=== PATIENT | female | born 1960 | race Caucasian/White ===

== ENCOUNTER 2017-11-05 14:28 | Emergency (ER) | payer BC ==
[2017-11-05] MEDS ORDERED: ONDANSETRON HCL IV 4 MG/2 ML VIAL IV ONE (14:49)
[2017-11-05] MEDS ORDERED: 0.9 % SODIUM CHLORIDE 1,000 ML BAG IV ONE (14:49)
--- NOTE | 2017-11-05 14:51 | Emergency Department Record ---
History of Present Illness - General Chief Complaint: Abdominal Pain Stated Complaint: ABD PAIN Time Seen by Provider: 11/05/17 14:41 Source: Patient Mode of Arrival: Ambulatory Limitations: No limitations - History of Present Illness Initial Comments: The patient is here due to a one day hx of sharp stabbing RUQ AP with intermittent radiation to the R flank. She has had nausea but no vomiting. Now today the patient is having watery stools also. There is no reported fever, chills, dysuria, blood in the stool, Cp or SOB. The patient has had her GB removed and also a hysterectomy. Her last colonscopy was last year and normal. MD Complaint: Abdominal pain Onset/Timin -: Days(s) Location: Epigastric, RUQ - Related Data Hx Age of Menopause: 46 Home Medications Medication Instructions Recorded Confirmed Last Taken Canagliflozin [Invokana] 300 mg PO ASDIR 11/05/17 11/05/17 11/04/17 Dulaglutide [Trulicity] 1.5 mg INJ ASDIR 11/05/17 11/05/17 11/04/17 Insulin Degludec [Tresiba 200 mg PO ASDIR 11/05/17 11/05/17 11/04/17 Flextouch U-200] Previous Rx's Medication Instructions Recorded Dicyclomine HCl [Bentyl] 10 mg PO Q8H #15 cap 11/05/17 Omeprazole 20 mg PO DAILY #28 cap. 11/05/17 Allergies Allergy/AdvReac Type Severity Reaction Status Date / Time prochlorperazine edisylate Allergy Severe ANAPHYLAXIS Verified 11/05/17 14:43 [From Compazine] prochlorperazine maleate Allergy Severe ANAPHYLAXIS Verified 11/05/17 14:43 [From Compazine] Review of Systems Constitutional: Denies: Chills, Fever Eyes: Denies: Eye discharge ENT: Denies: Congestion Respiratory: Denies: Cough, Dyspnea Cardiovascular: Denies: Arrhythmia, Chest pain Endocrine: Denies: Fatigue Gastrointestinal: Reports: Abdominal pain, Nausea Genitourinary: Denies: Dysuria Musculoskeletal: Denies: Arthralgia Past Medical History - SOCIAL HISTORY Smoking Status: Current every day smoker - RESPIRATORY Hx Respiratory Disorders: Yes Hx Sleep Apnea: Yes Hx of CPAP: Yes - CARDIOVASCULAR Hx Cardio Disorders: Yes Hx Chest Pain: Yes (6 months ago RUQ pain-had stress test recently) Hx Deep Vein Thrombosis: Yes (superficial vein in upper rt thigh-Rx with [facility] ( November 2015)) - NEURO Hx Neuro Disorders: Yes Hx Neuropathy: Yes (diabetic -in feet) - GI Hx GI Disorders: Yes Hx of Polyps: Yes (recent colonoscopy) - Hx Genitourinary Disorders: No - ENDOCRINE Hx Endocrine Disorders: Yes Hx Diabetes: Yes - MUSCULOSKELETAL Hx Musculoskeletal Disorders: Yes Hx Arthritis: Yes (right knee and hip) - PSYCH Hx Psych Problems: No Hx Depression: No (problem) - HEMATOLOGY/ONCOLOGY Hx Hematology/Oncology Disorders: Yes Hx Clotting Problems: Yes (had superficial DVT in thigh-no problem now) Family Medical History Hx Alcohol Use: Children *Alcohol Comment: son Hx Cancer: Father *Cancer Comment: skin Ca face Hx Heart Disease: Mother *Liver Comment: 5 yo grandson has cirrhosis-monitor at [facility] Physical Exam - General General Appearance: Alert, Oriented x3, Cooperative, No acute distress - Head Head exam: Atraumatic, Normocephalic, Normal inspection - Eye Eye exam: Normal appearance, PERRL - Neck Neck exam: Normal inspection, Full ROM. negative: Tenderness - Respiratory Respiratory exam: Normal lung sounds bilaterally. negative: Respiratory distress - Cardiovascular Cardiovascular Exam: Regular rate, Normal rhythm, Normal heart sounds - GI/Abdominal GI/Abdominal exam: Soft, Tenderness (There is mild to moderate RUQ and epigastric tenderness.). negative: Rebound, Rigid - Extremities Extremities exam: Normal inspection, Full ROM, Normal capillary refill. negative: Tenderness - Neurological Neurological exam: Alert, Normal gait. negative: Abnormal gait, Motor sensory deficit Course - Reevaluation(s) Reevaluation #1: The patient is doing a lot better at this time. She denies any pain or nausea presently and on exam her abdomen is very soft with only very minimal RUQ tenderness. I did explain to the patient that the lab tests and CT do not demonstrate any emergent condition that could be causing the pain. Do to the fact she is doing so much better we will discharge the patient on an oral H2 bharti with bentyl for cramps and have her F/U with her PCP tomorrow for recheck. 11/05/17 16:08 Reevaluation #2: The patient is doing very well at this time. She denies any pain or discomfort and is ready for home. 11/05/17 16:40 Medical Decision Making - Data Complexity MDM Data: Labs Ordered and/or Reviewed, X-Ray Ordered and/or Reviewed - Lab Data Result diagrams: 11/05/17 15:10 11/05/17 15:10 - Radiology Data Radiology results: Report reviewed (CT: Sigmoid diverticulosis, no diverticulitis. Few fluid filled loops of SB, Prob mild ileus. O/W neg.) Disposition Disposition: Discharge Clinical Impression: Abdominal pain Qualifiers: Abdominal location: right upper quadrant Qualified Code(s): R10.11 - Right upper quadrant pain Disposition: Home, Self-Care Condition: (2) Stable Instructions: Abdominal Pain (ED) Additional Instructions: Please eat a very bland diet and use Tylenol for pain. Take the Prilosec and Bentyl as directed. Please return to the ER for any worsening pain, fever, vomiting, or blood in the stool. Prescriptions: Dicyclomine HCl [Bentyl] 10 mg PO Q8H #15 cap Omeprazole 20 mg PO DAILY #28 cap.dr Forms: Patient Portal Access Time of Disposition: 16:12 Quality - Quality Measures Quality Measures: N/A - Blood Pressure Screening View Details: Yes Does Patient Have Any of the Following: No Blood Pressure Classification: Pre-Hypertensive BP Reading Systolic Measurement: 127 Diastolic Measurement: 82 Screening for High Blood Pressure: < Pre-Hypertensive BP, F/U Documented > [ [id number]] Pre-Hypertensive Follow-up Interventions: Referral to alternative/primary care provider.
[2017-11-05 15:16] LABS: BASO % 0.5 % (0-6); EOS % 1.6 % (0-6); GRAN % 62.1 % (47-80); HEMATOCRIT 51.8 % (35.0-47.0); HEMOGLOBIN 17.6 gm/dl (11.6-16.0); LYMPH % 29.1 % (16-45); MEAN CELL VOLUME 94.7 fl (81-97); MEAN PLATELET VOLUME 9.4 fl (7.4-10.4); MONO % 6.7 % (0-9); PLATELET COUNT 312 K/uL (130-400); RED BLOOD COUNT 5.47 M/uL (3.80-5.40); RED CELL DISTRIBUTION WIDTH 14.2 % (11.5-14.5); WHITE BLOOD COUNT W/O DIFF 8.5 K/uL (4.2-12.2)
[2017-11-05 15:17] LABS: MEAN CORPUSCULAR HEMOGLOBIN 32.1 pg (27-33); URINE APPEARANCE CLEAR; URINE BILIRUBIN NEGATIVE (NEGATIVE); URINE BLOOD NEGATIVE (NEGATIVE); URINE COLOR YELLOW; URINE GLUCOSE (UA) >=1000 mg/dL (NEGATIVE); URINE KETONE TRACE (NEGATIVE); URINE LEUKOCYTE ESTERASE NEGATIVE (NEGATIVE); URINE NITRITE NEGATIVE (NEGATIVE); URINE PROTEIN NEGATIVE (NEGATIVE); URINE UROBILINOGEN 0.2 E.U./dL (0.20 - 1.00)
[2017-11-05 15:26] LABS: BLOOD UREA NITROGEN 17 mg/dL (6-20); CREATININE 0.7 mg/dL (0.5-0.9); EST GLOMERULAR FILTRATION RATE > 60 mL/min
[2017-11-05 15:29] LABS: GLUCOSE,RANDOM 120 mg/dL (74-109)
[2017-11-05 15:31] LABS: ALT/SGPT 12 U/L (<33)
[2017-11-05 15:32] LABS: ALBUMIN 3.9 g/dL (4.0-5.0); ALKALINE PHOSPHATASE 77 U/L (35-104); AST/SGOT 17 U/L (10.0-35.0); BILIRUBIN,DIRECT < 0.2 mg/dL (0-0.3); LIPASE 28 U/L (13-60)
[2017-11-05] MEDS ORDERED: KETOROLAC 30 MG/ML VIAL IVP ONE (15:35)
[2017-11-05] MEDS ORDERED: MAGNESIUM HYDROXIDE/AL HYDROX 30 ML, LIDOCAINE VISC 2% 200 MG PO ONE ×2 (15:35)
--- NOTE | 2017-11-06 15:06 | CT SCAN REPORT ---
EXAM: CT OF THE ABDOMEN AND PELVIS WITHOUT CONTRAST HISTORY: RIGHT UPPER QUADRANT PAIN. TECHNIQUE: CT of the abdomen and pelvis was performed without oral or IV contrast, this limits evaluation of bowel and solid visceral organs. Comparison: Prior CT from 12/11/16. FINDINGS: Limited evaluation of the lung bases is unremarkable. The osseous structures are grossly intact. Probable fatty infiltrative change to the liver. The spleen is unremarkable. Stable nodularity of the adrenal glands bilaterally likely reflecting bilateral adrenal adenomas. Status post cholecystectomy. The visualized pancreas and kidneys are unremarkable. Negative for urinary tract calculus or hydronephrosis. Normal appendix. The appendix extends into the subhepatic space. There are several mildly prominent fluid filled loops of small bowel centrally without a discreet transition point. Findings favor ileus with an incomplete obstruction felt unlikely. Continued follow-up is nonetheless recommended. There is sigmoid diverticulosis without CT evidence for diverticulitis. The urinary bladder is not distended, limiting its evaluation. Status post hysterectomy. Small amount of air in the vaginal cuff. IMPRESSION: 1. SEVERAL MILDLY PROMINENT FLUID FILLED LOOPS OF SMALL BOWEL CENTRALLY LIKELY REFLECTING ILEUS. NO DISCREET TRANSITION POINT. CONTINUED FOLLOW-UP RECOMMENDED. PARTIAL OR INCOMPLETE OBSTRUCTION IS FELT LESS LIKELY. 2. SIGMOID DIVERTICULOSIS WITHOUT CT EVIDENCE FOR DIVERTICULITIS. 3. FATTY INFILTRATIVE CHANGE TO THE LIVER. 4. STABLE NODULARITY OF THE ADRENAL GLANDS BILATERALLY. JOB NUMBER: [id number] [facility]
== END 2017-11-05 16:55 | disposition home or self-care (01) ==
LOC: ER 14:28
DX: R10.11 Right upper quadrant pain (principal); R11.0 Nausea; R19.7 Diarrhea, unspecified; F17.210 Nicotine dependence, cigarettes, uncomplicated; Z79.4 Long term (current) use of insulin; Z86.718 Personal history of other venous thrombosis and embolism
CPT/HCPCS: 74176; 80048; 80076; 81003; 83690; 85025; 96361; 96374; 96375; 99284; J1885; J2405; J7030

== ENCOUNTER 2017-11-20 09:25 | Day surgery (SDC) | payer BC ==
[2017-11-20] MEDS ORDERED: LIDOCAINE 2% MDV (20MG/ML) 20ML VIAL IV ONE (09:26)
[2017-11-20] MEDS ORDERED: PROPOFOL 10 MG/ML VIAL IV ONE (09:26)
--- NOTE | 2017-11-24 12:30 | Operative Note ---
DATE OF SURGERY: 11/20/2017 SURGEON: Hernando Villeda MD OPERATION: ESOPHAGOGASTRODUODENOSCOPY. INDICATIONS: This is a 57-year-old female with history of intermittent episodes of dysphagia who presented for esophagogastroduodenoscopy. POSTOPERATIVE DIAGNOSES: 1. Normal esophagus with no specific stricture status post Wiley dilatation to 60-Niuean. 2. Mild gastritis. 3. Mild duodenitis. ANESTHESIA: Sedation is per Anesthesia. Pulse oximetry was monitored throughout the procedure to maintain O2 saturation of 90% or greater. Supplemental oxygen was administered via nasal cannula. Cardiac and vital signs were monitored throughout the duration of the procedure, and they were stable. The procedure of esophagogastroduodenoscopy and risks and benefits of the procedure, including the risk of bleeding and perforation, among others, were explained to the patient who voiced understanding and agreed to have the procedure done. Physical examination was performed, and the patient was found stable for sedation. PROCEDURE: The patient was placed in the left lateral position. Sedation was initiated. A plastic bite block was inserted into the oral cavity. The Olympus [id number] gastroscope was introduced into the oral cavity and advanced to the proximal esophagus without difficulty. The esophageal mucosa was carefully examined upon introduction of the gastroscope. The proximal and mid as well as distal esophageal mucosa appeared normal. The gastroscope was then advanced into the stomach, and surveillance of the stomach revealed mild erythema along the gastric body and antrum but no ulcers were noted. The gastroscope was then advanced to the descending duodenum without difficulty. The duodenal bulb and descending duodenum appeared mildly erythematous with no ulcers noted. Multiple duodenal biopsies were obtained. The gastroscope was then withdrawn into the stomach and retroflexion was performed. There were no other lesions noted. The gastroscope was then withdrawn while carefully examining the gastric and esophageal mucosa. No other lesions noted. Multiple gastric and mid esophageal biopsies were obtained. The patient remained with stable vital signs and Wiley dilator size 60-Niuean was then passed into the stomach with minimal resistance. The Wiley dilator was then withdrawn and the procedures were terminated. The patient tolerated the procedures well without any immediate complaints. She remained with stable vital signs and was transferred to the recovery room. RECOMMENDATIONS: 1. The patient is to continue on his proton pump inhibitors. 2. We will see her back in the office as needed. Thank you for allowing me to participate in the care of your patient. CC: Juan Sanon, DO MTDD
== END 2017-11-20 11:32 | disposition home or self-care (01) ==
LOC: HOP 09:25
PROVIDERS: ATTEND Internal Medicine Gastroenterology
DX: R13.10 Dysphagia, unspecified (principal); K29.70 Gastritis, unspecified, without bleeding; K29.80 Duodenitis without bleeding; E11.9 Type 2 diabetes mellitus without complications; Z79.4 Long term (current) use of insulin; K58.9 Irritable bowel syndrome, unspecified